=== PATIENT | male | born 1960 | race African-American/Black ===

== ENCOUNTER 2018-04-03 12:57 | Emergency (ER) | payer MEDICARE, MEDICAID ==
[~2018-04-03] VITALS: Ht 182.9 cm; Wt 84.5 kg
[2018-04-03 13:53] LABS: EOSINOPHILS % 1.6 % (0.0-5.0); HEMATOCRIT. 37.8 % (42.0-52.0); HEMOGLOBIN. 12.9 g/dL (14.0-18.0); LYMPHOCYTES % 34.6 % (20.0-50.0); MEAN CORPUSCULAR HEMOGLOBIN 30.3 pg (28.0-32.0); MEAN CORPUSCULAR VOLUME 88.4 fL (80.0-94.0); MEAN PLATELET VOLUME 8.4 fl (7.4-10.4); MONOCYTES % 6.8 % (2.0-8.0); PLATELET 208 x1000/uL (130-400); RED BLOOD CELL COUNT 4.28 mill/uL (4.7-6.1); RED CELL DISTRIBUTION WIDTH 14.2 % (11.6-14.6)
[2018-04-03 14:00] LABS: CHLORIDE 108 mEq/L (98-107)
[2018-04-03 14:02] LABS: PARTIAL THROMBOPLASTIN TIME 28.6 sec (23.4-31.0)
[2018-04-03 14:04] LABS: ETHANOL BLOOD < 10 mg/dL
[2018-04-03 14:07] LABS: LDL CHOLESTEROL 65 mg/dL (5-100)
[2018-04-03 14:09] LABS: CREATINE KINASE 302 IU/L (39-308)
[2018-04-03 14:13] LABS: CLARITY URINE CLEAR (CLEAR); COLOR URINE YELLOW (YELLOW); KETONES URINE NEGATIVE (NEGATIVE); LEUKOCYTE ESTERASE URINE NEGATIVE (NEGATIVE); NITRITE URINE NEGATIVE (NEGATIVE); OCCULT BLOOD URINE NEGATIVE (NEGATIVE); PH URINE 6.5 (4.5-8.0); PROTEIN URINE NEGATIVE (NEGATIVE); UROBILINOGEN URINE 0.2 E.U./dL (0.2-1.0)
[2018-04-03 14:54] LABS: *AMPHETAMINES SCREEN URINE NEGATIVE (NEGATIVE); *BARBITURATES SCREEN URINE NEGATIVE (NEGATIVE); *BENZODIAZEPINES SCREEN URINE NEGATIVE (NEGATIVE); *COCAINE SCREEN URINE NEGATIVE (NEGATIVE)
[2018-04-03 14:55] LABS: CANNABINOID URINE SCREEN PRESUMTIVE POSITIVE (NEGATIVE); METHADONE URINE SCREEN NEGATIVE (NEGATIVE); OPIATES URINE SCREEN NEGATIVE (NEGATIVE); PHENCYCLIDINE URINE SCREEN NEGATIVE (NEGATIVE)
[2018-04-03] MEDS ORDERED: PREDNISONE 20MG TABLET PO ONE (16:00)
[2018-04-03 16:34] VITALS: BP 135/75
== END 2018-04-03 16:37 | disposition home or self-care (01) ==
LOC: ER 12:57 → CANBEDREQ 16:45
DX: G51.0 Bell's palsy (principal); I10 Essential (primary) hypertension; F17.200 Nicotine dependence, unspecified, uncomplicated; B20 Human immunodeficiency virus [HIV] disease; Z71.6 Tobacco abuse counseling
CPT/HCPCS: 36415; 70450; 70551; 71045; 80053; 80305; 81003; 82550; 82962; 83690; 83721; 83880; 84484; 85025; 85610; 85730; 93005; 99284; 99406; G0482; J7512